=== PATIENT | female | born 1970 | race Caucasian/White ===

== ENCOUNTER → 2017-09-19 | Outpatient (CLI) | payer OTHER ==
[~2017-09-19] MED LIST: CALCIUM PO; CAMILA0.35 MG PO; CENTRUM ULTRA1 EAC1 PO; FISH OIL 1,0001 EAC7 PO; ZANTAC150 MG PO
== END | disposition home or self-care (01) ==
LOC: RES 09:58
DX: J45.909 Unspecified asthma, uncomplicated (principal)
CPT/HCPCS: 94070; 94726; 94729